=== PATIENT | male | born 1980 | race Caucasian/White ===

== ENCOUNTER 2017-05-13 17:20 | Emergency (ER) | payer MEDICAID ==
--- NOTE | 2017-05-13 18:10 | ER Document Report ---
ED General - General Chief Complaint: Finger Injury Stated Complaint: FINGER INJURY Time Seen by Provider: 05/13/17 18:08 Mode of Arrival: Ambulatory Information source: Patient Notes: Patient is a 37-year-old male who presents with 3 day history of distal finger pain and swelling to right middle finger. He states last week he had it while at work and he saw his primary care doctor 3 days ago who told him it was infected and prescribed an antibiotic and advised to soak in Epsom salt. He states he woke up this morning with worsening pain and redness to the tip of his finger. Describes the pain as throbbing. Denies any fever, chills, difficulty with range of motion, nausea, vomiting, bruising. He endorses antibiotic compliance but has not taken anything for pain. TRAVEL OUTSIDE OF THE [place] IN LAST 30 DAYS: No - Related Data Allergies/Adverse Reactions: No Known Allergies Allergy (Verified 05/13/17 17:21) Past Medical History - General Information source: Patient - Social History Smoking Status: Current Every Day Smoker Chew tobacco use (# tins/day): No Frequency of alcohol use: Occasional Drug Abuse: None, Marijuana Family History: Reviewed & Not Pertinent Patient has suicidal ideation: No Patient has homicidal ideation: No Renal/ Medical History: Denies: Hx Peritoneal Dialysis Review of Systems - Review of Systems Constitutional: See HPI EENT: No symptoms reported Cardiovascular: No symptoms reported Respiratory: No symptoms reported Gastrointestinal: No symptoms reported Genitourinary: No symptoms reported Male Genitourinary: No symptoms reported Musculoskeletal: See HPI Skin: See HPI Hematologic/Lymphatic: No symptoms reported Neurological/Psychological: No symptoms reported Physical Exam - Vital signs Vitals: Temp Pulse Resp BP Pulse Ox 98.4 F 81 16 129/79 H 99 05/13/17 17:31 05/13/17 17:31 05/13/17 17:31 05/13/17 17:31 05/13/17 17:31 - Notes Notes: PHYSICAL EXAM: CONSTITUTIONAL: Alert and oriented, well-appearing and in no acute distress. Speaking in full sentences without difficulty HENT: Normocephalic, atraumatic. E Trachea midline. Uvula midline. Moist mucous membranes. EYES: Pupils equal round and reactive to light, EOM intact. Sclera anicteric, conjunctiva are normal. No entrapment. NECK: supple without lymphadenopathy. No midline tenderness or paraspinous muscle spasms. ROM intact. HEART: Regular rate and rhythm without murmurs. LUNGS: CTAB and equal. No wheezes, rales or rhonchi. EXTREMITIES: Right hand-distal tip of middle finger with area of fluctuation along cuticle of the nail consistent with paronychia. Normal range of motion, no pitting edema. No cyanosis. Cap Refill <3 seconds. NEURO: Cranial nerves grossly intact. Normal sensory/motor exams. PSYCH: Normal mood, normal affect. SKIN: Warm and dry. Normal turgor. No rashes or lesions noted. Course - Re-evaluation Re-evalutation: 05/13/17 19:02 Patient seen and examined. Patient is alert and oriented, nontoxic in appearance, speaking full sentences without difficulty. He is afebrile and not tachycardic. Exam is consistent with paronychia, low suspicion for pulp infection. Discussed I&D process with patient and he states he would rather not have the procedure today. Discussed risk and benefits of having this done, the risk of worsening infection, and he again refused. Advised to continue taking antibiotics and soaking as directed. Will prescribe pain medicine. Gave strict return precautions if symptoms worsen. Patient voiced agreement. At this time, will discharge with return precautions and follow-up recommendations. Verbal discharge instructions given at the bedside and opportunity for questions given. Medication warnings reviewed. Patient is in agreement with this plan and has verbalized understanding of return precautions and the need for primary care follow-up in the next 24-72 hours. - Vital Signs Vital signs: Temp Pulse Resp BP Pulse Ox 98.4 F 81 16 129/79 H 99 05/13/17 17:31 05/13/17 17:31 05/13/17 17:31 05/13/17 17:31 05/13/17 17:31 Discharge - Discharge Clinical Impression: Paronychia of finger of right hand Condition: Stable Disposition: HOME, SELF-CARE Instructions: Paronychia ([facility]), Antibiotic Therapy ([facility]) Additional Instructions: Return if symptoms worsen. Continue to take all antibiotics and take pain medication as directed. Follow-up with your primary care doctor in 1-2 days. Prescriptions: Hydrocodone/Acetaminophen [Odonnell 5-325 mg Tablet] 1 tab PO Q8HP PRN #10 tablet PRN Reason: Ibuprofen [Motrin 600 Mg Tablet] 600 mg PO TID #15 tablet Forms: Elevated Blood Pressure
[2017-05-13] MEDS ORDERED: LIDOCAINE 1% INJ-PF (10 MG/ML) 30 ML SDV INJ ONE (19:24)
[2017-05-13] MEDS ORDERED: HYDROCODONE/ACETAMINOPHEN 5-325 MG 6 TAB/DSPK PO PRN (19:53)
[2017-05-13 20:23] VITALS: BP 133/84
== END 2017-05-13 20:22 | disposition home or self-care (01) ==
LOC: ER 17:20
DX: L03.011 Cellulitis of right finger (principal); F17.200 Nicotine dependence, unspecified, uncomplicated
CPT/HCPCS: 99283; 10060; J3490

== ENCOUNTER 2018-01-12 01:16 | Emergency (ER) | payer MEDICAID ==
[2018-01-12 01:22] VITALS: BP 113/63
== END 2018-01-12 04:13 | disposition left against medical advice (07) ==
LOC: ER 01:16
DX: Z53.21 Procedure and treatment not carried out due to patient leaving prior to being seen by health care provider (principal); R10.9 Unspecified abdominal pain